=== PATIENT | female | born 1960 | race Hispanic/Latino ===

== ENCOUNTER 2020-11-25 15:08 | Emergency (ER) | payer OTHER ==
[2020-11-25 17:55] VITALS: BP 140/93
--- NOTE | 2020-11-25 19:30 | Emergency Department Report ---
ED Fall HPI - General Chief Complaint: Extremity Injury, Lower Stated Complaint: LEG PAINS Time Seen by Provider: 11/25/20 19:22 Source: patient Mode of arrival: Wheelchair - History of Present Illness Initial Comments: 60-year-old female presents to the ER today with complaints of left knee pain and left third finger pain after an accidental fall around 2:30 PM. Patient states that she was hurrying across the street, when her shoes got caught on the pavement causing her to fall. She states that she fell forward and in the process twisted her left knee and struck left hand on the pavement. She describes a hyper extension injury to her fingers. She denies any head injury. She reports abrasion to her left knee and forearm. She reports no neck pain, back pain or chest pain. She reports no other symptoms at this time. Patient states that she had an ACL repair to her left knee in 1999. MD Complaint: fall, other (Left finger pain and left knee pain) -: Sudden (Around 2:30 PM this afternoon) - Related Data Previous Rx's Medication Instructions Recorded Last Taken Type Acetaminophen/Codeine [Tylenol 1 tab PO Q6H PRN #12 tab 11/25/20 Unknown Rx /Codeine # 3 tab] Ibuprofen [Motrin] 600 mg PO Q8H PRN #30 tablet 11/25/20 Unknown Rx Allergies Allergy/AdvReac Type Severity Reaction Status Date / Time No Known Allergies Allergy Unverified 11/25/20 17:50 ED Review of Systems ROS: Stated complaint: LEG PAINS Other details as noted in HPI Comment: All other systems reviewed and negative Constitutional: denies: chills, fever Eyes: denies: eye pain, eye discharge, vision change ENT: denies: ear pain, throat pain Respiratory: denies: cough, shortness of breath, SOB with exertion, SOB at rest, stridor, wheezing Cardiovascular: denies: chest pain, palpitations, dyspnea on exertion, edema, syncope, paroxysmal nocturnal dyspnea Gastrointestinal: denies: abdominal pain, nausea, diarrhea, constipation, hematemesis, melena, hematochezia Genitourinary: denies: urgency, dysuria, frequency, hematuria, discharge, abnormal menses Musculoskeletal: joint swelling, arthralgia Skin: other (Abrasion) Neurological: denies: headache, weakness, numbness, paresthesias, confusion, abnormal gait, vertigo Psychiatric: denies: anxiety, depression, auditory hallucinations, visual hallucinations, homicidal thoughts, suicidal thoughts Hematological/Lymphatic: denies: easy bleeding, easy bruising, swollen glands ED Past Medical Hx - Past Medical History Previous Medical History?: Yes Hx Hypertension: Yes Hx Diabetes: Yes - Surgical History Past Surgical History?: Yes Additional Surgical History: ACL left leg, cartridge right leg - Medications Home Medications: Home Medications Medication Instructions Recorded Confirmed Last Taken Type Acetaminophen/Codeine [Tylenol 1 tab PO Q6H PRN #12 tab 11/25/20 Unknown Rx /Codeine # 3 tab] Ibuprofen [Motrin] 600 mg PO Q8H PRN #30 tablet 11/25/20 Unknown Rx ED Physical Exam - General Limitations: No Limitations General appearance: alert, in no apparent distress - Head Head exam: Present: atraumatic, normocephalic, normal inspection - Eye Eye exam: Present: normal appearance, PERRL, EOMI Pupils: Present: normal accommodation - ENT ENT exam: Present: normal exam, mucous membranes moist, TM's normal bilaterally - Neck Neck exam: Present: normal inspection, full ROM - Respiratory Respiratory exam: Present: normal lung sounds bilaterally. Absent: respiratory distress, wheezes, rales, rhonchi, stridor - Cardiovascular Cardiovascular Exam: Present: regular rate, normal rhythm, normal heart sounds - GI/Abdominal GI/Abdominal exam: Present: soft. Absent: distended, tenderness, guarding, rebound - Expanded Upper Extremity Exam Left Hand Wrist exam: Present: tenderness (There is tenderness to palpation to the left third finger at the level of the proximal phalanx and the PIP joint. ), swelling (Mild swelling noted about the left third finger proximal phalanx and PIP joint.). Absent: full ROM (There is mild decreased flexion at the level of the MCP and the PIP joint of the left third finger.), abrasion, laceration, deformity, crepidus, dislocation, erythema, amputation, nail avulsion, subungual hematoma Neuro motor exam: Present: wrist extension intact, thumb opposition intact, thumb IP flexion intact, thumb adduction intact Neurosensory exam: Present: radial nerve intact, ulnar nerve intact, median nerve intact Vascular: Present: normal capillary refill. Absent: vascular compromise - Expanded Lower Extremity Exam Left Knee exam: Present: tenderness (Tenderness to palpation to the medial aspect of the left knee, and the superior patellar area), swelling (Mild swelling noted to the anterior aspect of the knee), effusion (Maulik no effusion noted to the left knee), full knee extension. Absent: full ROM (Flexion of the left knee mildly decreased due to pain), abrasion, laceration, ecchymosis, deformity, crepidus, dislocation, erythema, pain w/ pronation/supination, posterior draw sign, pain/laxity with valgus, pain/laxity with varus Neuro vascular tendon exam: Present: no vascular compromise. Absent: abnormal cap refill, motor deficit, sensory deficit, tendon deficit Gait: Positive: not tested/not observed - Neurological Exam Neurological exam: Present: alert, oriented X3, CN II-XII intact, normal gait - Psychiatric Psychiatric exam: Present: normal affect, normal mood - Skin Skin exam: Present: intact ED Course Vital Signs 11/25/20 17:52 Temperature 98.3 F Pulse Rate 104 H Respiratory 18 Rate Blood Pressure 140/93 [Right] O2 Sat by Pulse 99 Oximetry ED Medical Decision Making - Radiology Data Radiology results: report reviewed Patient: MARIA E JENKINS MR#: [id number] : 1960 Acct:[id number] Age/Sex: 60 / F ADM Date: 11/25/20 Loc: ED Attending Dr: Ordering Physician: MADHURI MAX Date of Service: 11/25/20 Procedure(s): XR hand 3+V LT Accession Number(s): [id number] cc: MADHURI MAX Fluoro Time In Minutes: LEFT HAND 3 VIEWS INDICATION / CLINICAL INFORMATION: Fall/injury/3rd/4th finger pain. COMPARISON: None available. FINDINGS: BONES / JOINT(S): No acute fracture or subluxation. There are mild degenerative changes. SOFT TISSUES: No significant abnormality. ADDITIONAL FINDINGS: None. Signer Name: Gilberto Lin MD Signed: 11/25/2020 7:57 PM Workstation Name: [id number] Transcribed By: RT Dictated By: Gilberto Lin MD Electronically Authenticated By: Gilberto Lin MD Signed Date/Time: 11/25/201956 DD/ 55 TD/TT: Patient: MARIA E JENKINS MR#: [id number] : 1960 Acct:[id number] Age/Sex: 60 / F ADM Date: 11/25/20 Loc: ED Attending Dr: Ordering Physician: MADHURI MAX Date of Service: 11/25/20 Procedure(s): XR knee 3V LT Accession Number(s): [id number] cc: MADHURI MAX Fluoro Time In Minutes: LEFT KNEE 3 VIEWS INDICATION / CLINICAL INFORMATION: Injury with left knee pain. COMPARISON: None available. FINDINGS: BONES / JOINT(S): There are surgical changes consistent with prior ACL reconstruction. There are mild degenerative changes. There is a moderately large suprapatellar joint effusion. I see no evidence of acute fracture or subluxation. SOFT TISSUES: No significant abnormality. ADDITIONAL FINDINGS: None. Signer Name: Gilberto Lin MD Signed: 11/25/2020 7:58 PM Workstation Name: [id number] Transcribed By: RT Dictated By: Gilberto Lin MD Electronically Authenticated By: Gilberto Lin MD Signed Date/Time: 11/25/201957 DD/ 56 TD/TT: - Medical Decision Making X-ray of the left hand and finger shows nothing acute. X-ray of the left knee shows moderate to large joint effusion but otherwise no acute fracture or dislocation. Discussed x-ray results with patient. She was given a knee immobilizer and crutches and instructed to follow-up with extension service specialist [facility]. Splint also applied to the finger. Patient expressed understanding of instructions and agree with plan. Patient stable at time of discharge Critical care attestation.: If time is entered above; I have spent that time in minutes in the direct care of this critically ill patient, excluding procedure time. ED Disposition Clinical Impression: Knee sprain, Knee effusion, left, Sprain, finger Disposition: DC-01 TO HOME OR SELFCARE Is pt being admited?: No Does the pt Need Aspirin: No Condition: Stable Instructions: Knee Effusion, [id number], Knee Sprain, Adult, [id number], Finger Sprain, Adult, [id number] Additional Instructions: I recommend that you use the knee immobilizer and crutches as discussed. Wear the finger splint as discussed. I recommend that you follow-up with your orthopedic doctor at [facility] orthopedic this week for further treatment and evaluation especially if your knee given that you have a moderate sized knee effusion and to rule out any cartilage or ligament tear. Elevate your leg as often as possible. Recommend that you apply ice. Take the ibuprofen and the Tylenol threes as prescribed. Return to the ER if your symptoms changes or worsens in any way. Prescriptions: Ibuprofen [Motrin] 600 mg PO Q8H PRN #30 tablet PRN Reason: Pain Acetaminophen/Codeine [Tylenol /Codeine # 3 tab] 1 tab PO Q6H PRN #12 tab PRN Reason: Pain Referrals: [facility] [Provider Group] - 3-5 Days Time of Disposition: 20:33
--- NOTE | 2020-11-25 20:01 | XRay Report ---
LEFT HAND 3 VIEWS INDICATION / CLINICAL INFORMATION: Fall/injury/3rd/4th finger pain. COMPARISON: None available. FINDINGS: BONES / JOINT(S): No acute fracture or subluxation. There are mild degenerative changes. SOFT TISSUES: No significant abnormality. ADDITIONAL FINDINGS: None. Signer Name: Gilberto Lin MD Signed: 11/25/2020 7:57 PM Workstation Name: [id number]
--- NOTE | 2020-11-25 20:03 | XRay Report ---
LEFT KNEE 3 VIEWS INDICATION / CLINICAL INFORMATION: Injury with left knee pain. COMPARISON: None available. FINDINGS: BONES / JOINT(S): There are surgical changes consistent with prior ACL reconstruction. There are mild degenerative changes. There is a moderately large suprapatellar joint effusion. I see no evidence of acute fracture or subluxation. SOFT TISSUES: No significant abnormality. ADDITIONAL FINDINGS: None. Signer Name: Gilberto Lin MD Signed: 11/25/2020 7:58 PM Workstation Name: [id number]
== END 2020-11-25 21:30 | disposition home or self-care (01) ==
LOC: ED 15:08
DX: S83.92XA Sprain of unspecified site of left knee, initial encounter (principal); S63.613A Unspecified sprain of left middle finger, initial encounter; E11.8 Type 2 diabetes mellitus with unspecified complications; W19.XXXA Unspecified fall, initial encounter; Y93.89 Activity, other specified; Y92.488 Other paved roadways as the place of occurrence of the external cause; Y99.8 Other external cause status
CPT/HCPCS: 99283